=== PATIENT | female | born 1965 | race Caucasian/White ===

== ENCOUNTER 2016-08-06 18:20 | Emergency (ER) | payer SELFPAY ==
--- NOTE | 2016-08-13 14:34 | ER ---
ADMIT: 08/06/2016 RM/LOC: ER [facility] MR#: [id number] [address] [id number] [address] [place] [address] Emergency Room Report SEX: F AGE: 51 : 1965 DATE: 08/06/2016 ADDENDUM: This patient comes in to the ER because she is vomiting. She is currently withdrawing herself from opiates. She has been taking it for the last 7 years, decided that she needed to stop. She has not had opiates for a week; however, today, she has had constant vomiting. She has only urinated twice. On physical exam, she does appear to be dehydrated. Her oral mucosa is dry. I gave her a liter of bolus, which really improved her symptoms. She was also given Reglan and Zofran and Ativan 1 mg. She is to follow up with her primary as needed. Please see my T-sheet. JE Elena / Michele Orellana MD / nicolel JOB #: [id number] CC: Michele Orellana MD, Attending Physician Humaira Silver, Family Physician
== END 2016-08-06 21:03 | disposition home or self-care (01) ==
LOC: ER 18:20
DX: F11.23 Opioid dependence with withdrawal (principal); R11.10 Vomiting, unspecified; E03.9 Hypothyroidism, unspecified; I10 Essential (primary) hypertension; Z79.899 Other long term (current) drug therapy